=== PATIENT | male | born 2005 | race Caucasian/White ===

== ENCOUNTER 2025-01-20 17:03 | Emergency (ER) | payer BC, SELFPAY ==
[2025-01-20 17:05] VITALS: BP 148/86; PULSE 81; RESP 18; TEMP 36.8; O2SAT 100; BMI 29.0
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
== END 2025-01-20 19:44 | disposition home or self-care (01) ==
PROVIDERS: Emergency Provider Emergency Medicine; Visit Provider Emergency Medicine
DX: S60.221A Contusion of right hand, initial encounter (principal); V89.2XXA Person injured in unspecified motor-vehicle accident, traffic, initial encounter; S60.511A Abrasion of right hand, initial encounter; F17.290 Nicotine dependence, other tobacco product, uncomplicated
CPT/HCPCS: 73130; 99282